=== PATIENT | male | born 1960 | race Two or more races ===

== ENCOUNTER 2017-04-30 09:11 | Emergency (ER) | payer BC ==
[~2017-04-30] VITALS: Ht 175.3 cm; Wt 80.7 kg
[2017-04-30 09:11] VITALS: BP 146/90
== END 2017-04-30 10:27 | disposition home or self-care (01) ==
LOC: ER 09:13
DX: H60.92 Unspecified otitis externa, left ear (principal); I10 Essential (primary) hypertension; F17.200 Nicotine dependence, unspecified, uncomplicated
CPT/HCPCS: 99283; A4606; Z7610